=== PATIENT | male | born 1935 | race Caucasian/White ===

== ENCOUNTER 2016-10-20 14:38 | Observation (INO) | payer MEDICARE, OTHER ==
[2016-10-17 10:03] LABS: HEMATOCRIT 38.4 % (40.0-51.0); HEMOGLOBIN 13.3 g/dL (13.6-17.8)
[2016-10-17 10:23] LABS: BUN (BLOOD UREA NITROGEN) 16 MG/DL (6-23); CHLORIDE, SERUM 106 MMOL/L (96-112); CO2 (CARBON DIOXIDE) 26 MMOL/L (24-34); CREATININE 0.98 MG/DL (0.70-1.30); GFR AFRICAN AMERICAN 83 ML/MIN (>=60); GFR NON AFRICAN AMERICAN 72 ML/MIN (>=60); GLUCOSE, SERUM 181 MG/DL (60-99); POTASSIUM, SERUM 4.2 MMOL/L (3.5-5.3); SODIUM, SERUM 141 MMOL/L (135-148)
--- NOTE | ~2016-10-20 | OP ---
Record Of Operation [facility] [address] [place]. [address] NAME: FAN JOSUE : 33 STATUS : DIS Nim[place] PAT#: [id number] AGE: 81 ADM/REG DATE : 10/20/16 MR#: [id number] REPORT SERV DATE: 10/24/16 DICTATED BY: DE GRIER III DATE: 10/24/16 REPORT STATUS : Draft TRANSCRIBED BY: MODL DATE: 10/24/16 DATE OF PROCEDURE: 10/20/2016 PREOPERATIVE DIAGNOSIS: Gross hematuria. POSTOPERATIVE DIAGNOSIS: Prostate enlargement and prostate mass consistent with a locally advanced prostate cancer. PROCEDURES: 1. Transrectal ultrasound. 2. Ultrasound guidance. 3. Needle biopsy of the prostate gland. 4. Cystoscopy, left retrograde pyelogram, and transurethral resection of prostate tissue with catheter placement. SURGEON: De Grier M.D. ANESTHESIA: General. SPECIMEN: 1. Prostate biopsies x14. 2. Prostate tissue. BLOOD LOSS: 25 mL. INDICATION: Mr. Josue is an 81-year-old white male with known prostate cancer. He has recently had gross hematuria with clots. Consent is obtained for the above procedure. DESCRIPTION OF PROCEDURE: After consent was obtained, the patient was identified. He was taken to the OR and put to sleep and positioned in the low lithotomy position. The ultrasound probe was placed in the rectum and a three-dimensional volume was 101 mL. Ultrasound guidance was activated. A needle biopsy was performed with 2 cores from the right and left bases, and the right and left apexes, and 3 cores from each of the right and left mid glands. The cystoscope was made ready and then passed along the course of urethra into the bladder. There was some prostate tissue consistent with locally advanced prostate cancer encountered in the prostatic urethra. The tissue was very friable and bleeding. The bladder was entered. The left ureteral orifice was identified. A cone-tipped ureteral catheter was inserted and retrograde pyelogram was obtained which appeared normal. I was unable to identify the right ureteral orifice secondary to the prostate enlargement. Because of this excess tissue which was friable, I felt that the patient would benefit from resection; therefore, the smaller resectoscope was made ready and was used to resect the prostatic tissue and to cauterize the bleeding points. After this was done, all resected tissue was removed using an Chet evacuator. A 22-[place] three-way Rock catheter was then inserted using a catheter guide. The balloon was inflated and a bladder irrigation was begun. The patient was awakened and taken to recovery room in stable condition. Record Of Operation [facility] [address] [place]. [address] NAME: FAN JOSUE : 33 STATUS : DIS Nimco PAT#: [id number] AGE: 81 ADM/REG DATE : 10/20/16 MR#: [id number] REPORT SERV DATE: 10/24/16 DICTATED BY: DE GRIER III DATE: 10/24/16 REPORT STATUS : Draft TRANSCRIBED BY: MODPavithra DATE: 10/24/16 PH/OLGA De Grier III, M.D. / [id number] CC: Lindsay Parra III, MD
[~2016-10-20 14:38] MED LIST: ASAB PO; CASODEX 50 MG T50 MG PO; D.O.S.100 MG PO; DIABET2.5 PO; FLOMAX4 PO; GLUCPH8 PO; LIPITOR10 PO; LOP50 PO; MONOPRIL40 MG PO; NORV10 PO; Z300 PO
[2017-01-16] MEDS ORDERED: FISH-EPA1000 MG PO (13:13)
[2017-01-16] MEDS ORDERED: FLOMAX4 PO (13:16)
[2017-01-16] MEDS ORDERED: LUPRON (13:18)
[2017-01-16] MEDS ORDERED: MYRBETRIQ PO (13:19)
[2017-02-20] MEDS ORDERED: ELIQUIS 2.5 MG2.5 MG PO (11:05)
[2017-02-20] MEDS ORDERED: FERROUS SULF325 M1 PO (11:06)
[2017-02-20] MEDS ORDERED: PROSCAR5 PO (11:13)
[2017-02-20] MEDS ORDERED: MACROBID PO (11:16)
[2017-02-24] MEDS ORDERED: LEVAQUIN750 MG PO (13:05)
[2017-02-24] MEDS ORDERED: PCET PO (13:05)
[2017-02-24] MEDS ORDERED: DSS PO (13:05)
== END 2016-10-21 14:35 | disposition home or self-care (01) ==
LOC: SDC 14:38 → 4SO 20:42
PROVIDERS: Urology
PROC: 0VB08ZZ Excision of Prostate, Via Natural or Artificial Opening Endoscopic (ICD-10-PCS; principal; 2016-10-20 15:30)
PROC: 0VB00ZX Excision of Prostate, Open Approach, Diagnostic (ICD-10-PCS; 2016-10-20 15:30)
DX: C61 Malignant neoplasm of prostate (principal); N40.0 Benign prostatic hyperplasia without lower urinary tract symptoms; E78.00 Pure hypercholesterolemia, unspecified; E11.9 Type 2 diabetes mellitus without complications; I10 Essential (primary) hypertension
CPT/HCPCS: 74420; 76872; 76942; 80048; 82962; 84295; 85014; 85018; 88305; 93005; A9270-GY; C1758; G0378; J2405; J3010; Q9967